=== PATIENT | male | born 1945 | race Caucasian/White ===

== ENCOUNTER 2023-08-17 11:38 | Emergency (ER) | payer MEDICARE, OTHER, SELFPAY ==
[2023-08-17] VITALS (10 sets, daily range): BP systolic 136–175; BP diastolic 75–113; PULSE 55–72; BMI 27.4
[2023-08-17 12:02] LABS: % Basophils 0.7 % (0-2); % Eosinophils 2.2 % (0-6); % Immature Granulocytes 0.4 % (0-0.5); % Lymphocytes 19.1 % (20.5-51.1); % Monocytes 10.5 % (1.7-9.3); % Neutrophils 67.1 % (42.2-75.2); Absolute Eosinophils 0.1 10^3/uL (0-0.7); Absolute Lymphocytes 1.1 10^3/uL (1.2-3.4); Absolute Monocytes 0.6 10^3/uL (0.1-0.6); Absolute Neutrophils 3.7 10^3/uL (1.4-6.5); Hematocrit 43.4 % (39.0-52.0); Hemoglobin 15.2 g/dL (13.0-18.0); Mean Corpuscular Volume 85.6 fL (80.0-94.0); Mean Platelet Volume 9.7 fL (7.4-10.4); Nucleated Red Blood Cells % 0 % (-); Platelet Count 164 10^3/uL (130-400); Red Blood Cell Count 5.07 10^6/uL (4.70-6.10); Red Cell Dist. Width 13.2 % (11.5-14.5); White Blood Cell Count 5.6 10^3/uL (4.8-10.8)
[2023-08-17 12:16] LABS: ALT (SGPT) 23 U/L (0-50); AST (SGOT) 27 U/L (17-59); Albumin 4.6 g/dl (3.5-5.0); Alkaline Phosphatase 62 U/L (38-126); Blood Urea Nitrogen 17 mg/dl (9-20); Calcium 9.2 mg/dl (8.4-10.2); Carbon Dioxide 27 mmol/L (22-30); Chloride 102 mmol/L (98-107); Estimated Creatinine Clearance 62 ml/min; Glucose 103 mg/dl (70-99); Potassium 4.8 mmol/L (3.5-5.1); Sodium 136 mmol/L (135-145); Total Bilirubin 0.7 mg/dl (0.2-1.3); Total Protein 6.7 g/dl (6.3-8.2); eGFR > 60.00
[2023-08-17 12:27] LABS: Troponin I < 0.012 ng/ml
--- NOTE | 2023-08-17 12:32 | ED.GENMED ---
History of Present Illness
<Geni Hutton PA-C - Last Filed: 08/18/23 18:53>
General
Chief Complaint: Fainting Sensation
Source: patient and family
Exam Limitations: none
Time Seen by Provider: 08/17/23 11:52
Nursing documentation reviewed up to this point in time: agreed with
History of Present Illness
History of Present Illness:
pt is a 77 y/o M with h/o HTN, and BPH newly started tamsulosin and finasteride 2 mo ago
ate breakfast normally
was walking in [place] and suddenly felt lightheaded and felt like he may pass out. tried to grab onto a pole but lost consciousness and fell
hit his chin, right elbow, right knee
woke up and is at baseline
never had any preceding headache or cp
no thinners
c/o mild pain in his jaw and right elbow/nknee
a few abrasoins right elbow, knee
laceration chin
went to urgent care and was sent here for eval
due for tetanus
no h/o syncope
no vomiting, diarrhea recently
no chagne to atenolol
Review of Systems
<Geni Hutton PA-C - Last Filed: 08/18/23 18:53>
Review of Systems
Allergies reviewed?: Yes
All Other Systems: Not applicable
Phy Exam
<Geni Hutton PA-C - Last Filed: 08/18/23 18:53>
Physical Exam
Physical Exam:
GENERAL: Alert , in no apparent distress
HEAD: NCAT
chin: irregular 1 cm laceration right lower chin
face: mild L maxillary tenderness; no swelling
NECK: no midline tenderness, active ROM intact, no paraspinal muscle tenderness;
EYE: pupils equal and reactive, EOMs intact.
ENT: o/p clr, mmm. no hemotympanum no dental tendrness
CARDIAC: Regular rate and rhythm, no edema
LUNGS: Clear breath sounds bilaterally, no acute respiratory distress, no wheezes/rales/rhonchi
ABDOMEN: Soft, without focal tenderness, no r/g, no cvat
NEUROLOGICAL: Alert and oriented, no focal neuro deficits, CN intact, 5/5 strength, sensation intact, normal ambulation
SKIN: Warm and dry, laceratino righ tchin
abrasion right nkee with small contuino
superficial 2 cm abrasion right elbow
MUSCULOSKELETAL: small bruise right anerior knee full ROM
full elbow ROM
notnender
PSYCH: Normal and appropriate interaction.
Course
<Geni Hutton PA-C - Last Filed: 08/18/23 18:53>
Orders/Labs/Results
Orders:
Orders
08/17/23 11:44
Electrocardiogram (*1) Urgent
Reason for Study: Chest Pain
EKG- Treatment ONCE
08/17/23 11:55
Complete Blood Count/With Diff Urgent
Comprehensive Metabolic Panel Urgent
Troponin I Urgent
08/17/23 12:22
CT Facial Bones W/o Iv Contras Urgent
Comment:
Reason For Exam: fall chin and jaw pain
CT Head W/o Iv Contrast Urgent
Comment:
Reason For Exam: syncope, hit face on ground
Orthostatic VS- Treatment ONCE
Tetanus/Diphth/Acelpertussis [Adacel] 0.5 ml IM .ONCE ONE
08/17/23 14:24
0.9% Sodium Chloride 500 ml [Nss] 500 ml IV BOLUS
Abnormal Lab Results
08/17/23
11:55
Absolute Lymphs (auto) 1.1 L 10^3/uL
(1.2-3.4)
Lymphocytes % 19.1 L %
(20.5-51.1)
Monocytes % 10.5 H %
(1.7-9.3)
Glucose 103 H mg/dl
(70-99)
08/17/23 11:55
08/17/23 11:55
Vital Signs
Initial and Last Documented VS:
Initial Vital Signs
BP
175/95
08/17/23 11:40
Last Documented Vital Signs
Temp Pulse Resp BP Pulse Ox
97.8 F 54 14 151/76 97
08/17/23 11:46 08/17/23 14:30 08/17/23 14:30 08/17/23 14:30 08/17/23 14:30
<Uriah Briones, DO - Last Filed: 08/17/23 14:45>
Orders/Labs/Results
Orders:
Orders
08/17/23 11:44
Electrocardiogram (*1) Urgent
Reason for Study: Chest Pain
EKG- Treatment ONCE
08/17/23 11:55
Complete Blood Count/With Diff Urgent
Comprehensive Metabolic Panel Urgent
Troponin I Urgent
08/17/23 12:22
CT Facial Bones W/o Iv Contras Urgent
Comment:
Reason For Exam: fall chin and jaw pain
CT Head W/o Iv Contrast Urgent
Comment:
Reason For Exam: syncope, hit face on ground
Orthostatic VS- Treatment ONCE
Tetanus/Diphth/Acelpertussis [Adacel] 0.5 ml IM .ONCE ONE
08/17/23 14:24
0.9% Sodium Chloride 500 ml [Nss] 500 ml IV BOLUS
Abnormal Lab Results
08/17/23
11:55
Absolute Lymphs (auto) 1.1 L 10^3/uL
(1.2-3.4)
Lymphocytes % 19.1 L %
(20.5-51.1)
Monocytes % 10.5 H %
(1.7-9.3)
Glucose 103 H mg/dl
(70-99)
08/17/23 11:55
08/17/23 11:55
Vital Signs
Initial and Last Documented VS:
Initial Vital Signs
BP
175/95
08/17/23 11:40
Last Documented Vital Signs
Temp Pulse Resp BP Pulse Ox
97.8 F 54 14 151/76 97
08/17/23 11:46 08/17/23 14:30 08/17/23 14:30 08/17/23 14:30 08/17/23 14:30
Procedures
<Geni Hutton PA-C - Last Filed: 08/18/23 18:53>
Laceration Closure
Right Chin:
Status of Wound: clean
Size of Wound in cm: 1
Description of Wound Edges: ragged
Preparation: cleaned with saline
Anesthesia: 1% Lidocaine with epi
Revision/Debridement: minor revision
Wound exploration: extensive cleaning of contaminated wound
Type of Closure: single layer closure
Skin Closure Material: 6-0 nylon
Number of sutures: 4
<Geni Hutton PA-C - Last Filed: 08/18/23 18:53>
MDM/Problems Addressed
Differential Diagnosis Includes:
syncope, near syncope, vasovagal
MDM/Problems Addressed:
77 y/o M with h/o BPH newly on flomax and finasteride
htn bb
here with syncope today while walking
felt lightheaded just prior and tried to grab onto something but fell forawrd and struck chin on the ground, right elbow and knee
laceration right chin
no preceeding sob or tachy or cp or headache
nevr passed out before
ate breakfast today
but has been taking his flomax in the morning
pt is well appearing
hr 50s-60s on monitor
sinus
no ischemic changes on ekg
head/face cts neg
no neck tenerness full painless rom
right elbow and knee abrasiosn/contusions without tendenress, full rom
tetanus updated
labs unremarkable
orthostatics minimal tilt
IVF given
seen by ED attending
agre likely combo from BB and flomax
flomx at night and f/u with urologist
caution if symptoms contines
<Geni Hutton PA-C - Last Filed: 08/18/23 18:53>
*Critical Care Note
Total Time (30-74mins, 75-104mins- exclusive of procedures): Not Applicable
ED Attending Note
<Geni Hutton PA-C - Last Filed: 08/18/23 18:53>
-
Portions of this chart may have been created with voice recognition software.� Occasional wrong word or��sound alike� substitutions may have occurred due to the inherent limitations of voice recognition software.
<Uriah Briones DO - Last Filed: 08/17/23 14:45>
ED Attending Note
Patient seen and examined by attending physician: Yes
I performed the substantive portion of visit, reviewed & personally made and approve the management plan that is documented in note by myself or ROBERT.: Yes
ED Attending Note:
Patient is a 77-year-old male with a history of hypertension and GERD who presents after a syncopal episode today. Patient did have oatmeal with strawberries, blueberries and bananas for breakfast and was walking when he began to feel lightheaded.
Patient held onto a railing and next he knew he was on the ground. Patient denies any neck or back pain. Patient denies any chest pain, palpitations, diaphoresis, nausea or vomiting. Patient has been on Flomax for the past 6 weeks. Patient takes
it in the morning. Today he is not particularly hot day. Patient denies fever or chills. Patient denies any previous history of similar episodes. Patient denies any focal weakness, ataxia, visual or speech difficulties. Patient does take
atenolol. On physical exam patient is normocephalic and neck is supple without tenderness. Patient has approximately 1 cm chin laceration. Chest is nontender. Heart is regular but bradycardic. There is no gallops or murmurs. Abdomen soft
nontender. Chest wall is nontender. Extremities show abrasion of the right knee where the patient had a ruptured patellar tendon in the past. Patient has no cyanosis or edema. Patient has good peripheral pulses are equal bilaterally. Patient
does not have a bony deformity or tenderness of the extremities. Patient's EKG is unremarkable except for sinus bradycardia. Monitor shows heart rate about 60. CTs are unremarkable. Patient's labs are unremarkable. Patient has syncopal episode
of uncertain etiology. However patient will be able to be discharged.
Discharge Plan
Departure
Patient Disposition: Home (Routine Discharge)
Date of Disposition: 08/17/23
Time of Disposition: 15:29
Patient with high blood pressure during this ER visit?: No
Condition: Fair
Covid-19: Not Applicable
Discharge Problem:
Syncope, Chin laceration, Contusion
Instructions: Syncope (Fainting) (DC), Laceration Infection (DC)
Prescriptions:
No Action
Fish Oil 300 mg Capsule
600 mg PO DAILY
atenolol 25 mg Tablet
25 mg PO DAILY
Referrals:
UNKNOWN - PT DOES,NOT KNOW [Family Provider] -
Activity Restrictions/Additional Instructions:
WE ARE NOT SURE THE CAUSE OF YOUR PASSING OUT EPISODE
YOUR HEAD SCAN AND FACIAL BONE SCAN IS NEGATIVE FOR SIGNS OF TRAUMA
YOU NEED TO PROBABLY TAKE YOUR FLOMAX AT NIGHT
FOLLOW UP WITH YOUR FMAILY DCOTOR
KEEP THE WOUND CLEAN AND DRY FOR 24 HOURS
AFTER THAT YOU CAN GET IT WET IN THE BATH/SHOWER ONCE A DAY AND MAKE SURE IT IS CLEAN AND THERE IS NO DRIED BLOOD ON THE STITCHES
APPLY NEOSPORIN AND A BANDAID
THE STITCHES NEED TO BE REMOVED IN ABOUT 5-7 DAYS, SEE YOUR DOCTOR FOR THIS.
THE LAST DAY BEFORE STITCHES OUT, NO OINTMENT, LEAVE OPEN TO AIR
WATCH FOR SIGNS OF INFECTION AND RETURN NEEDED FOR PAIN, SWELLING, REDNESS, DRAINAGE, BLEEDING.
MOTRIN NEEDED FOR PAIN.
Interventions
Interventions:
*Risk Screen - Suicide Last Done: 08/17/23 11:46
*General Assessment Last Done: 08/17/23 12:05
*Neglect/Abuse Screening Last Done: 08/17/23 11:46
ED- Fall Risk Assessment Last Done: 08/17/23 11:46
*ED COVID-19 Vaccine History Last Done: 08/17/23 11:46
*Nursing Disposition Last Done: 08/17/23 15:38
ZY-Cdvllq-Jpffyabobn Assessment Last Done: 08/17/23 11:50
ED- Cardiac Assessment Last Done: 08/17/23 11:46
ED- Neurological Assessment Last Done: 08/17/23 11:50
Discharge Date and Time
Discharge Date/Time: 08/17/23 15:38
Print Language: IRISH
[2023-08-17] MEDS: ADACEL 0.5 ML IM (13:03)
[2023-08-17] MEDS: NSS 500 IV (14:28)
== END 2023-08-17 15:38 | disposition home or self-care (01) ==
LOC: EMR 11:38
PROVIDERS: EMERGENCY PHYSICIAN Emergency Medicine
DX: S01.81XA Laceration without foreign body of other part of head, initial encounter (principal); S50.01XA Contusion of right elbow, initial encounter; S80.01XA Contusion of right knee, initial encounter; X58.XXXA Exposure to other specified factors, initial encounter; Z23 Encounter for immunization; R55 Syncope and collapse; I10 Essential (primary) hypertension; K21.9 Gastro-esophageal reflux disease without esophagitis
CPT/HCPCS: 99284; 96360; 90471; 70450; 70486; 80053; 84484; 85025; 90715; 93005